=== PATIENT | male | born 1985 | race Caucasian/White ===

== ENCOUNTER 2016-07-28 18:32 | Emergency (ER) | payer OTHER ==
[~2016-07-28] VITALS: Ht 172.7 cm; Wt 93.0 kg
[2016-07-28] MEDS ORDERED: ALPR0.5T3 (18:40)
[2016-07-28] MEDS ORDERED: ESOM1CAP5 (18:40)
[2016-07-28] MEDS ORDERED: LATU20TA (18:40)
[2016-07-28] MEDS ORDERED: GI COCKTAIL 50ML BTL(HYOSCYAMINE/MAALOX/LIDOCAINE VISCOUS)(1:3:1) PO ONE (19:15)
[2016-07-28 19:34] LABS: BASO % 0.6 % (0.0-1.0); EOS # 0.1 K/mm3 (0.0-0.50); EOS % 1.4 % (0.0-3.0); LARGE UNSTAINED CELL # 0.1 K/mm3 (0.0-0.4); LARGE UNSTAINED CELL % 2.1 % (0.0-4.0); LYMPH # 2.6 K/mm3 (1.5-4.5); MEAN CORPUSCULAR HEMOGLOBIN 32.5 pg (27.0-33.0); MEAN CORPUSCULAR HGB CONC 34.9 g/dl (32.0-36.5); MEAN CORPUSCULAR VOLUME 93.3 fl (80.0-96.0); MONO # 0.4 K/mm3 (0.0-0.8); MONO % 6.2 % (0.0-5.0); NEUTROPHILS # 2.6 K/mm3 (1.8-7.7); NEUTROPHILS % 44.8 % (36.0-66.0); PLATELET COUNT, AUTOMATED 284 k/mm3 (150-450); RED CELL DISTRIBUTION WIDTH 12.6 % (11.5-14.5); WHITE BLOOD COUNT 5.8 K/mm3 (4.0-10.0)
[2016-07-28 19:52] LABS: ERYTHROCYTE SEDIMENTATION RATE 5 mm/hr (0-15)
[2016-07-28 20:03] LABS: ALBUMIN 4.1 GM/DL (3.2-5.2); ALBUMIN/GLOBULIN RATIO 1.24 (1.00-1.93); ALKALINE PHOSPHATASE 61 U/L (45-117); ALT/SGPT 41 U/L (12-78); ANION GAP 5 MEQ/L (8-16); AST/SGOT 22 U/L (15-37); BILIRUBIN,DIRECT < 0.1 MG/DL (0.0-0.2); BILIRUBIN,TOTAL 0.2 MG/DL (0.2-1.0); BLOOD UREA NITROGEN 19 MG/DL (7-18); CALCIUM LEVEL 8.5 MG/DL (8.5-10.1); CARBON DIOXIDE LEVEL 28 MEQ/L (21-32); CHLORIDE LEVEL 106 MEQ/L (98-107); CREATININE FOR GFR 1.33 MG/DL (0.70-1.30); GLOMERULAR FILTRATION RATE > 60.0 (>60); GLUCOSE, FASTING 90 MG/DL (70-105); POTASSIUM SERUM 4.3 MEQ/L (3.5-5.1); SODIUM LEVEL 139 MEQ/L (136-145); TOTAL PROTEIN 7.4 GM/DL (6.4-8.2)
[2016-07-28] MEDS ORDERED: ASPIRIN 81 MG CHEW TABLET PO ONE (20:15)
[2016-07-28] MEDS ORDERED: NORCO, ANEXSIA 5/325MG TABLET (HYDROcodone/ACETAMINOPHEN) PO ONE (20:15)
[2016-07-28] MEDS ORDERED: NITROGLYCERIN 0.4 MG SUBL TABLET SL STA (21:03)
[2016-07-28] MEDS ORDERED: IBUPROFEN 600 MG TAB PO ONE (21:30)
[2016-07-28] MEDS ORDERED: NITROGLYCERIN 0.4 MG SUBL TABLET SL PRN (21:30)
[2016-07-28] MEDS ORDERED: NS 1,000 ML IV ONE (21:45)
[2016-07-29 00:57] VITALS: BP 124/72
--- NOTE | 2016-07-29 07:24 | ECGEPIP ---
Stationary ECG Study [facility] - ED Test Date: 2016-07-28 Pat Name: ANDREA LIN Department: Room: - Gender: M Food Aide: rn : 1985 Requested By: Oralia Reese Order Number: [id number] Reading MD: Oralia Reese Measurements Intervals [place] Rate: 58 P: 2 CA: 222 QRS: 54 QRSD: 96 T: 18 QT: 369 QTc: 365 Interpretive Statements SINUS BRADYCARDIA WITH SINUS ARRHYTHMIA WITH FIRST DEGREE AV BLOCK NO PRIOR FOR COMPARISON Electronically Signed On 07-29-2016 7:24:07 EDT by Oralia Reese
--- NOTE | 2016-07-29 07:28 | ECGEPIP ---
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
--- NOTE | 2016-07-29 08:34 | REP ---
PA and lateral chest: Comparison 10/25/2015. The lung bundy are clear. The cardiac size is normal The negro, mediastinum, and bony thorax are unremarkable. Impression: Negative PA and lateral chest. Signed by Yovani Morse MD 07/29/2016 08:26 A
== END 2016-07-29 00:58 | disposition home or self-care (01) ==
LOC: M ED 19:01
DX: R07.89 Other chest pain (principal); F17.210 Nicotine dependence, cigarettes, uncomplicated

== ENCOUNTER → 2016-09-10 | Day surgery (SDC) | payer OTHER ==
[~2016-09-10] VITALS: Ht 172.7 cm; Wt 91.9 kg
[~2016-09-10] MED LIST: ALBUTEROL SULFATE 2.5 MG/0.5 ML INH NEB SOLN As Ordered ONE; ALBUTEROL SULFATE 2.5 MG/0.5 ML INH NEB SOLN INH ONE; ALPR0.5T3; DOXY-278 PO; ESOM1CAP5 PO; GLYCOPYRROLATE INJ 0.2 MG/ML 2 ML VIAL As Ordered ONE; HYDROmorphone HCL 1 MG/ML SYRINGE (J1170) IV PRN; IBUPROFEN 800 MG TAB PO PRN; KETOROLAC 30 MG/ML VIAL (J1885) As Ordered ONE; KETOROLAC 30 MG/ML VIAL (J1885) IV PRN; LATU20TA; LIDOCAINE 2% INJ 100 MG/5 ML SDV (FOR ANES.) As Ordered ONE; LIDOCAINE W/EPINEPHRINE 1% 20ML VIAL As Ordered ONE; LR 1,000 ML IV ONE; LR 1,000 ML IV SCH; MEPERIDINE INJ 25 MG/ML VIAL (J2175) As Ordered ONE; METHYLENE BLUE 0.5% (5MG/ML) 10 ML AMP (PROVAYBLUE)(Q9968 PER 1MG) As Ordered ONE; METOCLOPRAMIDE INJ 10MG/2ML VIAL (J2765) As Ordered ONE; MIDAZOLAM INJ 2 MG/2 ML VIAL (J2250) As Ordered ONE; NEOSTIGMINE 1MG/ML 5 ML SYRINGE (J2710) As Ordered ONE; ONDANSETRON 4MG/2ML VIAL (J2405) As Ordered ONE; ONDANSETRON 4MG/2ML VIAL (J2405) IV PRN; OXYMETAZOLINE NASAL SPRAY (AFRIN) As Ordered ONE; PERCOCET 5MG/325MG TAB PO PRN; PERCOCET PO; PROPOFOL 200 MG/20 ML VIAL As Ordered ONE; ROCURONIUM BROMIDE 50 MG/5 ML VIAL As Ordered ONE; TUMS500C PO; dexameTHASONE 4 MG/ML 1ML VIAL (J1100) As Ordered ONE; fentaNYL 100 MCG/2 ML INJECTION (J3010) IV PRN; fentaNYL 250 MCG/5 ML INJECTION (J3010) As Ordered ONE
[2016-09-10] MEDS: MEPERIDINE INJ 25 MG/ML VIAL (J2175) IV PRN ×2 (11:30→11:35)
[2016-09-10 13:01] VITALS: BP 121/66
--- NOTE | 2016-09-12 09:30 | RO ---
DATE OF PROCEDURE: 09/10/2016 PREPROCEDURE DIAGNOSES: Deviated septum, chronic rhinitis. POSTPROCEDURE DIAGNOSES: Deviated septum, chronic rhinitis. PROCEDURE: Septoplasty with partial reduction inferior turbinates. SURGEON: Dr. Rosendo Joshua ENGINEERING DESIGN SUPERVISOR: ANESTHESIA: General endotracheal. INDICATIONS: The patient is a 31-year-old who presents with nasal obstruction. DESCRIPTION OF PROCEDURE: Satisfactory general endotracheal anesthesia administered. Pharyngeal pack was placed and the nose was prepared for surgery by placing cotton-soaked pledgets with Afrin solution to nasal cavity bilaterally. 1% Xylocaine with 1:100,000 epinephrine was used to inject into the nasal septum and inferior turbinates. A [place] incision was made on the left side of the nose. A mucoperichondrial flap and envelope was created on the left side of the nasal septum and carried down to the junction of the bony and cartilaginous septum. This was then with an elevator, and an envelope was then created on the right side of the septum. A Leah scissors was used to make a cut high in the perpendicular plate in the midportion of the vomer, and a central segment of the bony septum was resected. Next, with the round knife on the Stewart elevator, a strip of cartilage was resected from the floor of the nose, mobilizing the quadrilateral cartilage and creating a swinging door. Then, a central segment of cartilaginous septum was resected, preserving a 1 cm dorsal and caudal strut. Double-action rongeur was used to take down deflected portions of the perpendicular plate, as well. Finally, the maxillary crest spur was taken down after elevating mucoperiosteum off both sides of it with a chisel. A segment of the resected cartilage was morselized and placed back into the septal envelope. The incision was closed using an interrupted #5-0 chromic suture. Then, a #4-0 plain suture was placed in a osvm-bde-ggszd fashion through the two leaves of mucoperichondrium to appose them. Next, the inferior turbinates were medially infractured. A #15 blade was used to make an incision on the anterior tip of the inferior turbinate. With a Stewart elevator, a mucoperiosteal tunnel was created on the medial side of the turbinate. Then, the microdebrider with a 2.9 mm blade was inserted into the tunnel, and the underlying turbinate bone was weakened and partially resected using the microdebrider. Then, the turbinate was laterally outfractured. The posteroinferior tip of the turbinate was then cauterized with suction cautery. Finally, Mortensen splints were placed into the nose and sewn to the columella with a #2-0 Prolene suture. The pharyngeal pack, which had been placed at the beginning of the procedure was removed, the throat was suctioned. The patient was then awakened, extubated, and sent to recovery in satisfactory condition. He will be discharged home on Percocet for pain and doxycycline 100 mg twice a day. He will be seen back in 3 days for splint removal.
== END | disposition home or self-care (01) ==
LOC: M SDC 07:45
PROVIDERS: ATTEND Specialist
DX: J34.2 Deviated nasal septum (principal); J31.0 Chronic rhinitis; K21.9 Gastro-esophageal reflux disease without esophagitis; F17.210 Nicotine dependence, cigarettes, uncomplicated; R07.9 Chest pain, unspecified; F41.9 Anxiety disorder, unspecified; M54.2 Cervicalgia; Z79.899 Other long term (current) drug therapy

== ENCOUNTER → 2016-10-14 | Outpatient (CLI) | payer OTHER ==
[~2016-10-14] MED LIST changes: -ALBUTEROL SULFATE 2.5 MG/0.5 ML INH NEB SOLN As Ordered ONE; -ALBUTEROL SULFATE 2.5 MG/0.5 ML INH NEB SOLN INH ONE; -GLYCOPYRROLATE INJ 0.2 MG/ML 2 ML VIAL As Ordered ONE; -HYDROmorphone HCL 1 MG/ML SYRINGE (J1170) IV PRN; -IBUPROFEN 800 MG TAB PO PRN; -KETOROLAC 30 MG/ML VIAL (J1885) As Ordered ONE; -KETOROLAC 30 MG/ML VIAL (J1885) IV PRN; -LIDOCAINE 2% INJ 100 MG/5 ML SDV (FOR ANES.) As Ordered ONE; -LIDOCAINE W/EPINEPHRINE 1% 20ML VIAL As Ordered ONE; -LR 1,000 ML IV ONE; -LR 1,000 ML IV SCH; -MEPERIDINE INJ 25 MG/ML VIAL (J2175) As Ordered ONE; -METHYLENE BLUE 0.5% (5MG/ML) 10 ML AMP (PROVAYBLUE)(Q9968 PER 1MG) As Ordered ONE; -METOCLOPRAMIDE INJ 10MG/2ML VIAL (J2765) As Ordered ONE; -MIDAZOLAM INJ 2 MG/2 ML VIAL (J2250) As Ordered ONE; -NEOSTIGMINE 1MG/ML 5 ML SYRINGE (J2710) As Ordered ONE; -ONDANSETRON 4MG/2ML VIAL (J2405) As Ordered ONE; -ONDANSETRON 4MG/2ML VIAL (J2405) IV PRN; -OXYMETAZOLINE NASAL SPRAY (AFRIN) As Ordered ONE; -PERCOCET 5MG/325MG TAB PO PRN; -PROPOFOL 200 MG/20 ML VIAL As Ordered ONE; -ROCURONIUM BROMIDE 50 MG/5 ML VIAL As Ordered ONE; -dexameTHASONE 4 MG/ML 1ML VIAL (J1100) As Ordered ONE; -fentaNYL 100 MCG/2 ML INJECTION (J3010) IV PRN; -fentaNYL 250 MCG/5 ML INJECTION (J3010) As Ordered ONE
--- NOTE | 2016-10-14 12:52 | REP ---
Clinical: Trauma. Technique: AP, lateral right forearm. Findings: The osseous structures and joint spaces are intact and normal. There is no evidence for acute fracture or dislocation. Surrounding soft tissues are unremarkable. No subcutaneous emphysema or radiodense foreign body. Impression: No acute fracture or dislocation. Signed by Amari Dukes MD 10/14/2016 12:44 P
--- NOTE | 2016-10-14 12:53 | REP ---
Clinical: Trauma . Technique: AP, lateral, bilateral oblique views of the right elbow. Findings: No acute fracture or dislocation is appreciated. Joint spaces and surrounding soft tissues appear normal. Lateral view demonstrates normal positioning to the anterior and posterior fat pads without evidence for effusion/hemarthrosis. No subcutaneous emphysema or foreign body identified. Impression: Normal right elbow radiographs. Signed by Amari Dukes MD 10/14/2016 12:44 P
--- NOTE | 2016-10-14 12:54 | REP ---
Clinical: Trauma. Technique: AP, lateral, bilateral oblique views right hand . Findings: The osseous structures and joint spaces are intact and normal. There is no evidence for acute fracture or dislocation. Mild swelling. No subcutaneous emphysema or radiodense foreign body. Impression: Mild swelling. No acute fracture or dislocation. Signed by Amari Dukes MD 10/14/2016 12:46 P
== END ==
LOC: M WUC 12:20
PROVIDERS: ATTEND Physician Assistant
DX: M79.631 Pain in right forearm (principal); M25.541 Pain in joints of right hand; M25.441 Effusion, right hand

== ENCOUNTER → 2016-11-28 | Outpatient (CLI) | payer OTHER ==
--- NOTE | 2016-11-28 18:54 | REP ---
MAXILLOFACIAL CT WITHOUT CONTRAST: HISTORY: Chronic maxillary sinusitis. A small defect is present in the right uncinate process. This may be secondary to previous surgery. Minimal mucosal thickening is present in the right maxillary sinus. The remaining sinuses are clear. The osteomeatal units are patent. The middle and inferior nasal turbinates are partially paradoxical. There is mild deviation of the nasal septum to the right. The cribriform plate, medial marie of the orbits and optic canals are intact. The carotid canals for a segment of the posterolateral marie of the sphenoid sinus. The sphenoid sinus septum inserts into the left internal carotid canal wall. IMPRESSION: Sinus mucosal thickening as described above. Signed by Jasson Kaiser MD 11/29/2016 08:24 A
== END ==
LOC: M RAD 16:10
PROVIDERS: ATTEND Specialist
DX: J32.0 Chronic maxillary sinusitis (principal)

== ENCOUNTER → 2017-05-14 | Outpatient (CLI) | payer OTHER ==
[2017-05-14 12:40] LABS: BASO # 0.1 10^3/uL (0.0-0.2); BASO % 0.6 % (0.0-1.0); EOS # 0.1 10^3/uL (0.0-0.50); EOS % 0.7 % (0.0-3.0); HEMATOCRIT 47.4 % (42.0-52.0); HEMOGLOBIN 16.3 g/dl (14.0-18.0); IMMATURE GRANULOCYTE % 0.4 % (0-0); LYMPH # 3.9 10^3/uL (1.5-4.5); LYMPH % 36.6 % (24.0-44.0); MEAN CORPUSCULAR HEMOGLOBIN 31.3 pg (27.0-33.0); MEAN CORPUSCULAR HGB CONC 34.4 g/dl (32.0-36.5); NEUTROPHILS # 5.6 10^3/uL (1.8-7.7); NEUTROPHILS % 52.7 % (36.0-66.0); PLATELET COUNT, AUTOMATED 264 10^3/uL (150-450); RED BLOOD COUNT 5.21 10^6/uL (4.30-6.10); RED CELL DISTRIBUTION WIDTH 12.3 % (11.5-14.5); WHITE BLOOD COUNT 10.7 10^3/uL (4.0-10.0)
[2017-05-14 13:32] LABS: ALBUMIN 4.4 GM/DL (3.2-5.2); ALBUMIN/GLOBULIN RATIO 1.33 (1.00-1.93); ALKALINE PHOSPHATASE 65 U/L (45-117); ALT/SGPT 41 U/L (12-78); ANION GAP 8 MEQ/L (8-16); AST/SGOT 15 U/L (7-37); BILIRUBIN,TOTAL 0.3 MG/DL (0.2-1.0); BLOOD UREA NITROGEN 17 MG/DL (7-18); CALCIUM LEVEL 10.1 MG/DL (8.5-10.1); CARBON DIOXIDE LEVEL 29 MEQ/L (21-32); CHLORIDE LEVEL 106 MEQ/L (98-107); CREATININE FOR GFR 1.16 MG/DL (0.70-1.30); GLOMERULAR FILTRATION RATE > 60.0 (>60); GLUCOSE, FASTING 75 MG/DL (70-100); SODIUM LEVEL 143 MEQ/L (136-145); TOTAL PROTEIN 7.7 GM/DL (6.4-8.2)
== END ==
LOC: M WUC 09:47
DX: R05 Cough (principal)
CPT/HCPCS: 80053

== ENCOUNTER 2017-05-15 18:15 | Emergency (ER) | payer OTHER ==
[2017-05-15 20:06] LABS: BASO # 0.1 10^3/uL (0.0-0.2); BASO % 0.8 % (0.0-1.0); EOS # 0.1 10^3/uL (0.0-0.50); EOS % 1.5 % (0.0-3.0); HEMATOCRIT 44.3 % (42.0-52.0); HEMOGLOBIN 15.7 g/dl (14.0-18.0); IMMATURE GRANULOCYTE % 0.5 % (0-3.0); LYMPH # 2.8 10^3/uL (1.5-4.5); LYMPH % 37.5 % (24.0-44.0); MEAN CORPUSCULAR HEMOGLOBIN 31.7 pg (27.0-33.0); MEAN CORPUSCULAR HGB CONC 35.4 g/dl (32.0-36.5); MEAN CORPUSCULAR VOLUME 89.3 fl (80.0-96.0); MONO # 0.5 10^3/uL (0.0-0.8); MONO % 6.2 % (0.0-5.0); NEUTROPHILS % 53.5 % (36.0-66.0); PLATELET COUNT, AUTOMATED 238 10^3/uL (150-450); RED BLOOD COUNT 4.96 10^6/uL (4.30-6.10); RED CELL DISTRIBUTION WIDTH 11.9 % (11.5-14.5); WHITE BLOOD COUNT 7.4 10^3/uL (4.0-10.0)
[2017-05-15 20:16] LABS: INR 0.85; PROTHROMBIN TIME 11.7 SECONDS (12.4-14.5)
[2017-05-15 20:17] LABS: PARTIAL THROMBOPLASTIN TIME 31.5 SECONDS (26.8-37.9)
[2017-05-15 20:19] LABS: D-DIMER QUANT 277.4 ng/ml (<500)
[2017-05-15 20:25] LABS: ERYTHROCYTE SEDIMENTATION RATE 3 mm/hr (0-15)
[2017-05-15 20:38] LABS: ALBUMIN/GLOBULIN RATIO 1.25 (1.00-1.93); ALKALINE PHOSPHATASE 66 U/L (45-117); ALT/SGPT 41 U/L (12-78); ANION GAP 7 MEQ/L (8-16); AST/SGOT 18 U/L (7-37); BILIRUBIN,DIRECT < 0.1 MG/DL (0.0-0.2); BILIRUBIN,TOTAL 0.2 MG/DL (0.2-1.0); BLOOD UREA NITROGEN 20 MG/DL (7-18); C REACTIVE PROTEIN QUANTITATIV < 0.30 MG/DL (0.00-0.30); CALCIUM LEVEL 8.8 MG/DL (8.5-10.1); CARBON DIOXIDE LEVEL 29 MEQ/L (21-32); CHLORIDE LEVEL 105 MEQ/L (98-107); CREATININE FOR GFR 1.45 MG/DL (0.70-1.30); GLUCOSE, FASTING 115 MG/DL (70-100); NT-PRO BNP 18 PG/ML (<125); POTASSIUM SERUM 3.9 MEQ/L (3.5-5.1); SODIUM LEVEL 141 MEQ/L (136-145); TOTAL PROTEIN 7.2 GM/DL (6.4-8.2)
== END 2017-05-15 21:01 | disposition home or self-care (01) ==
LOC: M ED 18:15
DX: R07.9 Chest pain, unspecified (principal); R06.02 Shortness of breath; R00.2 Palpitations; R42 Dizziness and giddiness; R05 Cough; K21.9 Gastro-esophageal reflux disease without esophagitis; R56.9 Unspecified convulsions; F41.9 Anxiety disorder, unspecified; Z82.49 Family history of ischemic heart disease and other diseases of the circulatory system; F17.210 Nicotine dependence, cigarettes, uncomplicated
CPT/HCPCS: 71046

== ENCOUNTER → 2017-06-05 | Outpatient (CLI) | payer OTHER | LOC: M WUC 11:06 | DX: R05 Cough (principal) | CPT/HCPCS: 71046 ==

== ENCOUNTER → 2017-07-19 | Outpatient (CLI) | payer OTHER ==
[2017-07-19 12:40] LABS: HEMATOCRIT 43.9 % (42.0-52.0); HEMOGLOBIN 15.2 g/dl (13.5-17.5); MEAN CORPUSCULAR HEMOGLOBIN 31.3 pg (27.0-33.0); MEAN CORPUSCULAR HGB CONC 34.6 g/dl (32.0-36.5); MEAN CORPUSCULAR VOLUME 90.5 fl (80.0-96.0); PLATELET COUNT, AUTOMATED 267 10^3/uL (150-450); RED BLOOD COUNT 4.85 10^6/uL (4.30-6.10); RED CELL DISTRIBUTION WIDTH 12.6 % (11.5-14.5); WHITE BLOOD COUNT 6.5 10^3/uL (4.0-10.0)
[2017-07-19 12:56] LABS: TOTAL 25(OH) VITAMIN D 20.9 NG/ML (30.0-100.0)
[2017-07-19 12:57] LABS: ALBUMIN 4.4 GM/DL (3.2-5.2); ALBUMIN/GLOBULIN RATIO 1.33 (1.00-1.93); ALKALINE PHOSPHATASE 63 U/L (45-117); ALT/SGPT 47 U/L (12-78); ANION GAP 7 MEQ/L (8-16); AST/SGOT 15 U/L (7-37); BILIRUBIN,TOTAL 0.3 MG/DL (0.2-1.0); BLOOD UREA NITROGEN 19 MG/DL (7-18); CALCIUM LEVEL 8.9 MG/DL (8.5-10.1); CARBON DIOXIDE LEVEL 27 MEQ/L (21-32); CHLORIDE LEVEL 108 MEQ/L (98-107); CHOLESTEROL LEVEL 217 MG/DL (<200); CHOLESTEROL RISK RATIO 5.864 (<5); CREATININE FOR GFR 1.08 MG/DL (0.70-1.30); GLOMERULAR FILTRATION RATE > 60.0 (>60); GLUCOSE, FASTING 84 MG/DL (70-100); HDL CHOLESTEROL 37 MG/DL (>40); LDL CHOLESTEROL 147.8 MG/DL (<100); NON-HDL-C 180 MG/DL; POTASSIUM SERUM 4.5 MEQ/L (3.5-5.1); SODIUM LEVEL 142 MEQ/L (136-145); TESTOSTERONE 441 NG/DL (241-827); TOTAL PROTEIN 7.7 GM/DL (6.4-8.2); TRIGLYCERIDES LEVEL 161 MG/DL (<150)
[2017-07-19 13:21] LABS: ESTIMATED AVERAGE GLUCOSE 114 MG/DL (60-110); HEMOGLOBIN A1c 5.6 %
== END ==
LOC: M WUC 08:25
DX: D64.9 Anemia, unspecified (principal); R53.83 Other fatigue; E03.9 Hypothyroidism, unspecified
CPT/HCPCS: 84403

== ENCOUNTER 2017-09-21 09:52 | Emergency (ER) | payer OTHER ==
[2017-09-21] MEDS: KETOROLAC 60 MG/2 ML VIAL (J1885) IM ×2 (10:57)
== END 2017-09-21 12:19 | disposition home or self-care (01) ==
LOC: M ED 09:52
DX: M79.652 Pain in left thigh (principal); F41.9 Anxiety disorder, unspecified; F17.210 Nicotine dependence, cigarettes, uncomplicated
CPT/HCPCS: J1885

== ENCOUNTER → 2017-11-09 | Outpatient (CLI) | payer OTHER | LOC: M SLEEP 19:40 | DX: R40.0 Somnolence (principal) | CPT/HCPCS: 95810 ==

== ENCOUNTER 2017-11-15 10:38 | Day surgery (SDC) | payer OTHER ==
[2017-11-15] MEDS ORDERED: fentaNYL 100 MCG/2 ML INJECTION (J3010) As Ordered (10:46)
[2017-11-15] MEDS ORDERED: PROPOFOL 500 MG/50 ML VIAL As Ordered (10:48)
[2017-11-15] MEDS ORDERED: LIDOCAINE 2% INJ 100 MG/5 ML SDV (FOR ANES.) As Ordered (10:52)
[2017-11-15] MEDS: NS 1,000 ML IV (10:53)
== END 2017-11-15 12:25 | disposition home or self-care (01) ==
LOC: M OPP 10:38
DX: K21.9 Gastro-esophageal reflux disease without esophagitis (principal); K29.70 Gastritis, unspecified, without bleeding; K22.8 Other specified diseases of esophagus; M54.9 Dorsalgia, unspecified; F32.9 Major depressive disorder, single episode, unspecified; F41.9 Anxiety disorder, unspecified; F17.210 Nicotine dependence, cigarettes, uncomplicated; R00.2 Palpitations; Z79.899 Other long term (current) drug therapy; Z80.0 Family history of malignant neoplasm of digestive organs; Z82.49 Family history of ischemic heart disease and other diseases of the circulatory system; Z80.41 Family history of malignant neoplasm of ovary
CPT/HCPCS: 43239

== ENCOUNTER → 2017-12-12 | Outpatient (CLI) | payer OTHER | LOC: M SLEEP 19:43 | DX: G47.33 Obstructive sleep apnea (adult) (pediatric) (principal) | CPT/HCPCS: 95811 ==

== ENCOUNTER → 2018-03-02 | Outpatient (CLI) | payer OTHER | LOC: M WUC 12:06 | DX: M89.9 Disorder of bone, unspecified (principal) | CPT/HCPCS: 71046 ==

== ENCOUNTER 2018-10-05 09:28 | Emergency (ER) | payer OTHER ==
[~2018-10-05] VITALS: Ht 172.7 cm; Wt 90.9 kg
[~2018-10-05 09:28] MED LIST changes: +AZIT-12; -DOXY-278 PO; +DOXY-350 PO; +IPRA6SP; +NAPR-837 PO; +NORC1TAB7 PO; +PANT40TA3 PO
[2018-10-05] MEDS ORDERED: IBUPROFEN 800 MG TAB PO ONE (10:15)
--- NOTE | 2018-10-05 10:23 | REP ---
Clinical: Trauma. Technique: AP, lateral, bilateral oblique views of the left ankle. Findings: Lateral swelling consist with inversion injury. No acute fracture dislocation. Joint spaces and ankle mortise are intact. Impression: Lateral swelling consist with inversion injury. No acute fracture. Electronically Signed by Amari Dukes MD 10/05/2018 10:14 A
[2018-10-05 10:54] VITALS: BP 118/59
[2018-10-05] MEDS ORDERED: IBUP80TA PO (10:57)
[2018-10-05] MEDS ORDERED: ACET-683 PO (10:57)
[2018-10-05] MEDS ORDERED: PERCOCET 5MG/325MG TAB PO ONE (11:00)
== END 2018-10-05 11:10 | disposition home or self-care (01) ==
LOC: M ED 09:28
DX: S93.402A Sprain of unspecified ligament of left ankle, initial encounter (principal); X50.9XXA Other and unspecified overexertion or strenuous movements or postures, initial encounter; Y92.89 Other specified places as the place of occurrence of the external cause; K21.9 Gastro-esophageal reflux disease without esophagitis; F41.9 Anxiety disorder, unspecified; F17.210 Nicotine dependence, cigarettes, uncomplicated

== ENCOUNTER → 2019-02-13 | Outpatient (CLI) | payer OTHER ==
[~2019-02-13] MED LIST changes: +ACET-683 PO; +IBUP80TA PO
[2019-02-17 00:06] LABS: Lyme Disease IgG/IgM Antibodie <0.91 ISR (0.00-0.90); Lyme Disease IgM Ab Quantitati <0.80 index (0.00-0.79)
== END ==
LOC: M WUC 18:13
PROVIDERS: ATTEND Physician Assistant
DX: S40.262A Insect bite (nonvenomous) of left shoulder, initial encounter (principal); W57.XXXA Bitten or stung by nonvenomous insect and other nonvenomous arthropods, initial encounter; Y92.9 Unspecified place or not applicable

== ENCOUNTER 2019-04-27 23:55 | Emergency (ER) | payer OTHER ==
[~2019-04-27] VITALS: Ht 172.7 cm; Wt 98.0 kg
[2019-04-27 23:55] VITALS: BP 184/108
[2019-04-28] MEDS ORDERED: BUPIVACAINE LIPOSOME/PF 1.3% 20ML VIAL (13.3MG/ML)(EXPAREL)(C9290 PER1MG) INFIL ONE (01:15)
[2019-04-28] MEDS ORDERED: traMADol 50 MG TAB (BULK 4 TAB ED) PO ONE (02:30)
== END 2019-04-28 02:36 | disposition home or self-care (01) ==
LOC: M ED 23:55
DX: K08.89 Other specified disorders of teeth and supporting structures (principal); F17.200 Nicotine dependence, unspecified, uncomplicated; Z98.890 Other specified postprocedural states
CPT/HCPCS: 64400; 99282; C9290

== ENCOUNTER 2019-10-18 17:45 | Emergency (ER) | payer OTHER ==
[~2019-10-18] VITALS: Ht 172.7 cm; Wt 96.5 kg
[~2019-10-18 17:45] MED LIST changes: -CARA1TAB6 PO; -OMEP40CA97 PO; -PANT40TA29 PO; +PANT40TA3 PO; -PEPC1TAB5 PO; -PRED20TA PO
[2019-10-18 18:42] LABS: BASO % 0.6 % (0.0-1.0); EOS # 0.1 10^3/uL (0.0-0.5); HEMOGLOBIN 15.7 g/dl (13.5-17.5); LYMPH # 2.7 10^3/uL (1.5-5.0); LYMPH % 41.4 % (24.0-44.0); MEAN CORPUSCULAR HEMOGLOBIN 31.4 pg (27.0-33.0); MEAN CORPUSCULAR HGB CONC 34.1 g/dl (32.0-36.5); MONO # 0.4 10^3/uL (0.0-0.8); MONO % 5.6 % (0.0-5.0); NEUTROPHILS # 3.3 10^3/uL (1.5-8.5); NEUTROPHILS % 50.2 % (36.0-66.0); PLATELET COUNT, AUTOMATED 227 10^3/uL (150-450); WHITE BLOOD COUNT 6.6 10^3/uL (4.0-10.0)
[2019-10-18 19:14] LABS: ALBUMIN 4.1 GM/DL (3.2-5.2); ALT/SGPT 35 U/L (12-78); BILIRUBIN,DIRECT < 0.1 MG/DL (0.0-0.2); BILIRUBIN,TOTAL 0.1 MG/DL (0.2-1.0); LIPASE 88 U/L (73-393); TOTAL PROTEIN 7.4 GM/DL (6.4-8.2)
[2019-10-18] MEDS ORDERED: ISOVUE-370 76% 100ML VIAL As Ordered ONE (20:10)
--- NOTE | 2019-10-18 20:43 | REPVR ---
PROCEDURE INFORMATION: Exam: CT Abdomen And Pelvis With Contrast Exam date and time: 10/18/2019 8:18 PM Age: 34 years old Clinical indication: Abdominal pain; Flank; Left; Additional info: L flank pain TECHNIQUE: Imaging protocol: Computed tomography of the abdomen and pelvis with intravenous contrast. Radiation optimization: All CT scans at this facility use at least one of these dose optimization techniques: automated exposure control; mA and/or kV adjustment per patient size (includes targeted exams where dose is matched to clinical indication); or iterative reconstruction. Contrast material: ISOVUE 370; Contrast volume: 100 ml; Contrast route: INTRAVENOUS (IV); COMPARISON: CT ABD PELVIS WITH CONTRAST 10/25/2015 8:30 AM FINDINGS: Liver: Normal. No mass. Gallbladder and bile ducts: The gallbladder is incompletely distended. This is most likely related to incomplete fasting. Clinical correlation to exclude gallbladder pathology suggested. Pancreas: Normal. No ductal dilation. Spleen: Normal. No splenomegaly. Adrenals: Normal. No mass. Kidneys and ureters: Normal. No hydronephrosis. Stomach and bowel: Unremarkable. No obstruction. No mucosal thickening. Appendix: No evidence of appendicitis. Intraperitoneal space: Unremarkable. No free air. No significant fluid collection. Vasculature: Unremarkable. No abdominal aortic aneurysm. Lymph nodes: Unremarkable. No enlarged lymph nodes. Bladder: Unremarkable as visualized. Reproductive: The prostate gland demonstrates mild hyperplasia. Bones/joints: Moderate central spinal stenosis at L4-L5 secondary to a posterior disc protrusion. Soft tissues: Unremarkable. IMPRESSION: 1. The gallbladder is incompletely distended. This is most likely related to incomplete fasting. Clinical correlation to exclude gallbladder pathology suggested. 2. Mild prostatic hyperplasia. Electronically signed by: Rohan Dotson On 10/18/2019 20:43:21 PM
[2019-10-18 21:16] VITALS: BP 149/88
== END 2019-10-18 21:18 | disposition home or self-care (01) ==
LOC: M ED 17:45
DX: R10.9 Unspecified abdominal pain (principal)
CPT/HCPCS: 36415; 74177; 80047; 80076; 81001; 83690; 85025; 99284; Q9967

== ENCOUNTER → 2019-10-18 | Outpatient (CLI) | payer OTHER ==
[~2019-10-18] MED LIST changes: +CARA1TAB6 PO; +OMEP40CA97 PO; +PANT40TA29 PO; -PANT40TA3 PO; +PEPC1TAB5 PO; +PRED20TA PO
[2019-10-18 13:24] LABS: BACTERIA, URINE AUTO NEGATIVE (NEGATIVE); RBC, URINE AUTO 0 /HPF (0-3); SQUAMOUS EPITHELIAL CELL UR AU 0 /HPF (0-6); WBC, URINE AUTO 0 /HPF (0-3)
[2019-10-18 13:30] LABS: BASO % 0.6 % (0.0-1.0); EOS # 0.1 10^3/uL (0.0-0.5); EOS % 1.5 % (0.0-3.0); HEMATOCRIT 43.7 % (42.0-52.0); HEMOGLOBIN 15.1 g/dl (13.5-17.5); LYMPH # 2.1 10^3/uL (1.5-5.0); LYMPH % 30.7 % (24.0-44.0); MEAN CORPUSCULAR HEMOGLOBIN 31.7 pg (27.0-33.0); MEAN CORPUSCULAR HGB CONC 34.6 g/dl (32.0-36.5); MEAN CORPUSCULAR VOLUME 91.8 fl (80.0-96.0); MONO # 0.4 10^3/uL (0.0-0.8); MONO % 5.7 % (0.0-5.0); NEUTROPHILS # 4.2 10^3/uL (1.5-8.5); NEUTROPHILS % 61.2 % (36.0-66.0); PLATELET COUNT, AUTOMATED 228 10^3/uL (150-450); RED BLOOD COUNT 4.76 10^6/uL (4.30-6.10); WHITE BLOOD COUNT 6.9 10^3/uL (4.0-10.0)
[2019-10-18 13:39] LABS: ALBUMIN 3.9 GM/DL (3.2-5.2); ALT/SGPT 33 U/L (12-78); AMYLASE 33 U/L (25-115); BILIRUBIN,TOTAL 0.4 MG/DL (0.2-1.0); BLOOD UREA NITROGEN 18 MG/DL (7-18); CALCIUM LEVEL 8.8 MG/DL (8.5-10.1); CARBON DIOXIDE LEVEL 25 MEQ/L (21-32); CHLORIDE LEVEL 108 MEQ/L (98-107); CREATININE FOR GFR 1.08 MG/DL (0.70-1.30); GLOMERULAR FILTRATION RATE > 60.0 (>60); GLUCOSE, FASTING 113 MG/DL (70-100); LIPASE 58 U/L (73-393); SODIUM LEVEL 139 MEQ/L (136-145); TOTAL PROTEIN 7.1 GM/DL (6.4-8.2)
--- NOTE | 2019-10-19 03:08 | REP ---
SUPINE ABDOMEN: 10/18/2019. COMPARISON: AP view from lumbar spine 04/23/2016. CLINICAL HISTORY: Dorsalgia. FINDINGS: Pedicles, spinous and transverse processes were all unchanged. There is no compression deformity. Pelvis and lower thoracic region unremarkable. The gas pattern is nonspecific. There is some mild to moderate retained stool in the right and proximal transverse colon. No dilated small bowel loops. No abnormal calcifications over the renal fossae or expected course of the ureters, nor in the pelvis. IMPRESSION: 1. Nonspecific gas pattern; no obstruction, mass, or free air. 2. No abnormal calcifications over the renal fossae, expected course of the ureters, or bladder. 3. Some minor degenerative changes lower lumbar spine. Electronically Signed by Derek Carbone MD 10/19/2019 08:48 A
== END ==
LOC: M WUC 11:16
PROVIDERS: ATTEND Nurse Practitioner Family
DX: M54.9 Dorsalgia, unspecified (principal)

== ENCOUNTER → 2019-11-11 | Emergency (ER) | payer OTHER ==
[~2019-11-11] MED LIST changes: +CARA1TAB6 PO; +LIDOCAINE 5% (LIDODERM) PATCH As Ordered ONE; +LIDOCAINE 5% (LIDODERM) PATCH ONE; +MORPHINE 10 MG/ML 1ML VIAL (J2270) As Ordered ONE; +MORPHINE 10 MG/ML 1ML VIAL (J2270) ONE; +OMEP40CA97 PO; +PANT40TA29 PO; -PANT40TA3 PO; +PEPC1TAB5 PO; +PRED20TA PO; +diazePAM 5 MG TAB As Ordered ONE; +diazePAM 5 MG TAB ONE; +methylPREDNISolone 125MG 2ML VIAL As Ordered ONE; +methylPREDNISolone 125MG 2ML VIAL ONE
== END | disposition home or self-care (01) ==
LOC: M ED 18:22
DX: F17.200 Nicotine dependence, unspecified, uncomplicated (principal); M51.36 Other intervertebral disc degeneration, lumbar region; Z79.899 Other long term (current) drug therapy
CPT/HCPCS: 72146; 72148; 96372; 99283; J2270; J2930

== ENCOUNTER 2020-02-17 16:21 | Emergency (ER) | payer OTHER ==
[~2020-02-17] VITALS: Ht 172.7 cm; Wt 100.0 kg
[~2020-02-17 16:21] MED LIST changes: -CARA1TAB6 PO; -LIDOCAINE 5% (LIDODERM) PATCH As Ordered ONE; -LIDOCAINE 5% (LIDODERM) PATCH ONE; -MORPHINE 10 MG/ML 1ML VIAL (J2270) As Ordered ONE; -MORPHINE 10 MG/ML 1ML VIAL (J2270) ONE; -OMEP40CA97 PO; -PEPC1TAB5 PO; -PRED20TA PO; -diazePAM 5 MG TAB As Ordered ONE; -diazePAM 5 MG TAB ONE; -methylPREDNISolone 125MG 2ML VIAL As Ordered ONE; -methylPREDNISolone 125MG 2ML VIAL ONE
[2020-02-17] MEDS ORDERED: IBUP80TA PO (16:32)
[2020-02-17] MEDS ORDERED: COMBIVENT RESPIMAT 100-20MCG INHALER 4GM INH ONE (17:00)
[2020-02-17] MEDS ORDERED: GI COCKTAIL 50ML BTL(HYOSCYAMINE/MAALOX/LIDOCAINE VISCOUS)(1:3:1) PO ONE (17:00)
[2020-02-17] MEDS ORDERED: dexameTHASONE 20MG/5ML VIAL (J1100 PER 1MG) IV ONE (17:00)
[2020-02-17 17:46] LABS: BASO % 0.6 % (0.0-1.0); EOS # 0.1 10^3/uL (0.0-0.5); EOS % 1.1 % (0.0-3.0); HEMATOCRIT 44.3 % (42.0-52.0); LYMPH # 1.9 10^3/uL (1.5-5.0); LYMPH % 36.1 % (24.0-44.0); MEAN CORPUSCULAR HEMOGLOBIN 31.6 pg (27.0-33.0); MEAN CORPUSCULAR HGB CONC 33.9 g/dl (32.0-36.5); MEAN CORPUSCULAR VOLUME 93.3 fl (80.0-96.0); MONO # 0.4 10^3/uL (0.0-0.8); MONO % 6.5 % (0.0-5.0); NEUTROPHILS % 55.5 % (36.0-66.0); PLATELET COUNT, AUTOMATED 247 10^3/uL (150-450); RED BLOOD COUNT 4.75 10^6/uL (4.30-6.10); WHITE BLOOD COUNT 5.4 10^3/uL (4.0-10.0)
[2020-02-17 17:57] LABS: INR 0.94; PROTHROMBIN TIME 12.8 SECONDS (12.5-14.3)
[2020-02-17 18:02] LABS: D-DIMER QUANT < 270 ng/ml (<500)
[2020-02-17 18:13] LABS: ERYTHROCYTE SEDIMENTATION RATE 7 mm/hr (0-15)
[2020-02-17 18:24] LABS: ALBUMIN 3.9 GM/DL (3.2-5.2); ALT/SGPT 51 U/L (12-78); BILIRUBIN,DIRECT < 0.1 MG/DL (0.0-0.2); BILIRUBIN,TOTAL 0.2 MG/DL (0.2-1.0); BLOOD UREA NITROGEN 17 MG/DL (7-18); CALCIUM LEVEL 9.5 MG/DL (8.5-10.1); CARBON DIOXIDE LEVEL 29 MEQ/L (21-32); CHLORIDE LEVEL 106 MEQ/L (98-107); CK-MB VALUE MASS 1.7 NG/ML (<3.6); CPK CREATINE PHOSPHOKINASE 243 U/L (39-308); CREATININE FOR GFR 1.24 MG/DL (0.70-1.30); GLOMERULAR FILTRATION RATE > 60.0 (>60); GLUCOSE, FASTING 96 MG/DL (70-100); NT-PRO BNP 20 PG/ML (<125); POTASSIUM SERUM 4.1 MEQ/L (3.5-5.1); SODIUM LEVEL 143 MEQ/L (136-145); TOTAL PROTEIN 7.2 GM/DL (6.4-8.2); TROPONIN I < 0.02 NG/ML (< 0.10)
[2020-02-17] MEDS ORDERED: SUCRALFATE SUSP 1GM/10ML UD PO ONE (19:15)
[2020-02-17] MEDS ORDERED: ISOVUE-370 76% 100ML VIAL As Ordered ONE (19:25)
--- NOTE | 2020-02-17 19:55 | REPVR ---
PROCEDURE INFORMATION: Exam: CT Angiography Chest With Contrast Exam date and time: 02/17/2020 7:33 PM Age: 34 years old Clinical indication: Chest pain TECHNIQUE: Imaging protocol: Computed tomographic angiography of the chest with intravenous contrast. 3D rendering (Not supervised by radiologist): MIP and/or 3D reconstructed images were created by the technologist. Radiation optimization: All CT scans at this facility use at least one of these dose optimization techniques: automated exposure control; mA and/or kV adjustment per patient size (includes targeted exams where dose is matched to clinical indication); or iterative reconstruction. Contrast material: ISOVUE 370; Contrast volume: 75 ml; Contrast route: INTRAVENOUS (IV); COMPARISON: CR PORTABLE CHEST X-RAY 02/17/2020 6:46 PM FINDINGS: Pulmonary arteries: No focal pulmonary artery filling defect to suggest acute pulmonary embolus. Aorta: No thoracic aortic aneurysm or dissection. Lungs: Pulmonary vascular/interstitial pattern does not suggest active pulmonary edema. No suspicious lung mass or air space process. No central endobronchial lesion. Pleural space: No pleural effusion or pneumothorax. Heart: No overt cardiac enlargement or abnormal volume of pericardial fluid. Mediastinal space: Residual thymic tissue is present in the anterior mediastinum. Lymph nodes: . No enlarged lymph nodes. Bones/joints: Bony structures show no acute fracture or destructive process. Soft tissues: No asymmetric abnormality of the extrathoracic soft tissues. Other findings: Limited visualization of upper abdomen shows no concerning finding. IMPRESSION: 1. No evidence of acute pulmonary embolus. 2. No other acute or concerning focal intrathoracic abnormality. Electronically signed by: Gonzales Cueto On 02/17/2020 19:54:31 PM
--- NOTE | 2020-02-17 20:08 | REPVR ---
PROCEDURE INFORMATION: Exam: XR Chest, 1 View Exam date and time: 02/17/2020 4:57 PM Age: 34 years old Clinical indication: Other: Chest pain TECHNIQUE: Imaging protocol: XR of the chest Views: 1 view. COMPARISON: CR RIBS UNILAT WITHOUT PA CHEST 03/02/2018 12:17 PM FINDINGS: Lungs: Degree of lung inflation is normal. No evidence of pulmonary edema. No focal consolidation or parenchymal lung mass. Pleural space: No pleural effusion or pneumothorax. Heart/Mediastinum: Cardiac silhouette appears normal. No adenopathy or hilar mass. Bones/joints: Osseous structures show no concerning abnormality. IMPRESSION: No acute or focal cardiopulmonary process. Electronically signed by: Gonzales Cueto On 02/17/2020 20:07:16 PM
[2020-02-17 22:05] LABS: CK-MB VALUE MASS 1.7 NG/ML (<3.6); CPK CREATINE PHOSPHOKINASE 222 U/L (39-308); MB/CK RELATIVE INDEX 0.77 (< OR =4); TROPONIN I < 0.02 NG/ML (< 0.10)
[2020-02-17] MEDS ORDERED: PEPC1TAB5 PO (22:23)
[2020-02-17] MEDS ORDERED: PRED20TA PO (22:23)
[2020-02-17] MEDS ORDERED: OMEP40CA97 PO (22:23)
[2020-02-17] MEDS ORDERED: CARA1TAB6 PO (22:23)
[2020-02-17 22:30] VITALS: BP 187/99
--- NOTE | 2020-02-18 18:55 | ECGEPIP ---
[facility] - ED Test Date: 2020-02-17 Pat Name: ANDREA LIN Department: Room: - Gender: Male Performance Solutions Specialist: : 1985 Requested By: KAMINI Moran Order Number: [id number] Reading MD: Oralia Reese Measurements Intervals [place] Rate: 67 P: 23 [place]: 183 QRS: 33 QRSD: 105 T: 17 QT: 344 QTc: 364 Interpretive Statements SINUS RHYTHM SIMILAR 02/17/20 Electronically Signed on 02-18-2020 18:55:36 EST by Oralia Reese
--- NOTE | 2020-02-18 18:55 | ECGEPIP ---
[facility] - ED Test Date: 2020-02-17 Pat Name: ANDREA LIN Department: Room: - Gender: Male Paper Sheeter: : 1985 Requested By: KAMINI Moran Order Number: [id number] Reading MD: Oralia Reese Measurements Intervals [place] Rate: 62 P: 67 [place]: 184 QRS: 23 QRSD: 108 T: 45 QT: 360 QTc: 367 Interpretive Statements SINUS RHYTHM DECREASED RATE 05/15/17 Electronically Signed on 02-18-2020 18:54:43 EST by Oralia Reese
--- NOTE | 2020-02-18 18:56 | ECGEPIP ---
[facility] - ED Test Date: 2020-02-17 Pat Name: ANDREA LIN Department: Room: - Gender: Male Retoucher Photoengraving: JOSELINE : 1985 Requested By: KAMINI Moran Order Number: [id number] Reading MD: Oralia Reese Measurements Intervals [place] Rate: 67 P: 0 [place]: 183 QRS: 47 QRSD: 103 T: 22 QT: 363 QTc: 383 Interpretive Statements SINUS RHYTHM SIMILAR 02/17/20 Electronically Signed on 02-18-2020 18:56:26 EST by Oralia Reese
== END 2020-02-17 22:35 | disposition home or self-care (01) ==
LOC: M ED 16:21
DX: R07.89 Other chest pain (principal); F17.200 Nicotine dependence, unspecified, uncomplicated; Z82.49 Family history of ischemic heart disease and other diseases of the circulatory system
CPT/HCPCS: 71045; 71275; 80048; 80076; 82550; 82553; 83880; 84443; 85025; 85379; 85610; 85652; 85730; 86140; 87486; 87581; 87633; 87798; 93005; 93041; 94640; 94760; 96374; 99285; J1100; Q9967

== ENCOUNTER 2020-03-02 18:16 | Emergency (ER) | payer OTHER ==
[~2020-03-02] VITALS: Ht 172.7 cm; Wt 99.5 kg
[~2020-03-02 18:16] MED LIST changes: +CARA1TAB6 PO; +OMEP40CA97 PO; +PEPC1TAB5 PO; +PRED20TA PO
[2020-03-02 18:17] VITALS: BP 141/83
[2020-03-02] MEDS ORDERED: NS 1,000 ML IV ONE ×2 (20:15)
[2020-03-02] MEDS ORDERED: KETOROLAC 30 MG/ML 1ML VIAL IV ONE (20:15)
[2020-03-02] MEDS ORDERED: ONDANSETRON 4MG/2ML VIAL IV ONE (20:15)
[2020-03-02] MEDS ORDERED: FAMOTIDINE INJ 20MG/2ML VIAL (S0028 PER 1) IVP ONE (20:15)
== END 2020-03-02 20:39 | disposition left against medical advice (07) ==
LOC: M ED 18:16
DX: B34.9 Viral infection, unspecified (principal); F17.200 Nicotine dependence, unspecified, uncomplicated

== ENCOUNTER 2020-09-16 08:32 | Emergency (ER) | payer OTHER ==
[~2020-09-16] VITALS: Ht 172.7 cm; Wt 97.8 kg
[2020-09-16] MEDS ORDERED: dexameTHASONE 20MG/5ML VIAL (J1100 PER 1MG) IV ONE (08:50)
[2020-09-16] MEDS ORDERED: GI COCKTAIL 50ML BTL(HYOSCYAMINE/MAALOX/LIDOCAINE VISCOUS)(1:3:1) PO ONE (08:50)
[2020-09-16] MEDS ORDERED: COMBIVENT RESPIMAT 100-20MCG INHALER 4GM INH ONE (08:50)
[2020-09-16 09:26] LABS: BASO % 0.7 % (0.0-1.0); EOS # 0.2 10^3/uL (0.0-0.5); EOS % 3.3 % (0.0-3.0); HEMATOCRIT 43.2 % (42.0-52.0); HEMOGLOBIN 14.7 g/dl (13.5-17.5); LYMPH % 34.8 % (24.0-44.0); MEAN CORPUSCULAR HEMOGLOBIN 31.1 pg (27.0-33.0); MEAN CORPUSCULAR VOLUME 91.5 fl (80.0-96.0); MONO # 0.6 10^3/uL (0.0-0.8); MONO % 9.7 % (2.0-8.0); NEUTROPHILS % 51.2 % (36.0-66.0); PLATELET COUNT, AUTOMATED 232 10^3/uL (150-450); RED BLOOD COUNT 4.72 10^6/uL (4.30-6.10); WHITE BLOOD COUNT 5.8 10^3/uL (4.0-10.0)
[2020-09-16 09:55] LABS: ERYTHROCYTE SEDIMENTATION RATE 15 mm/hr (0-15)
[2020-09-16 10:22] LABS: RSV AMPLIFICATION NEGATIVE (NEGATIVE)
[2020-09-16 10:46] LABS: ALT/SGPT 43 IU/L (0-32); BLOOD UREA NITROGEN 16 MG/DL (7-18); CALCIUM LEVEL 8.8 MG/DL (8.5-10.1); CARBON DIOXIDE LEVEL 27 mmol/L (20-29); CHLORIDE LEVEL 109 MEQ/L (98-107); CPK CREATINE PHOSPHOKINASE 284 U/L (39-308); GLOMERULAR FILTRATION RATE > 60.0 (>60); GLUCOSE, FASTING 96 MG/DL (70-100); POTASSIUM SERUM 4.5 MEQ/L (3.5-5.1); SODIUM LEVEL 140 MEQ/L (136-145)
[2020-09-16 10:47] LABS: ALBUMIN 3.7 GM/DL (3.2-5.2); BILIRUBIN,DIRECT < 0.1 MG/DL (0.0-0.2); BILIRUBIN,TOTAL 0.2 MG/DL (0.2-1.0); CK-MB VALUE MASS 1.3 NG/ML (<3.6); MB/CK RELATIVE INDEX 0.45 (< OR =4); TOTAL PROTEIN 6.9 GM/DL (6.4-8.2)
[2020-09-16 10:48] LABS: LIPASE 99 U/L (73-393); TROPONIN I < 0.02 NG/ML (< 0.10)
--- NOTE | 2020-09-16 10:51 | REP ---
INDICATION: CHEST PAIN. COMPARISON: 02/17/2020. TECHNIQUE: Single portable AP view of the chest was performed. FINDINGS: There is no acute infiltrate or pulmonary edema. Lungs are clear. The heart is not significantly enlarged. The mediastinal silhouette is unremarkable. The visualized osseous structures are intact. IMPRESSION: No acute pulmonary disease. <Electronically signed by Yovani Rowland > 09/16/20 1048
[2020-09-16 13:21] LABS: CK-MB VALUE MASS 1.3 NG/ML (<3.6); CPK CREATINE PHOSPHOKINASE 252 U/L (39-308); MB/CK RELATIVE INDEX 0.51 (< OR =4); TROPONIN I < 0.02 NG/ML (< 0.10)
[2020-09-16] MEDS ORDERED: COMBAER6 INH (14:28)
[2020-09-16] MEDS ORDERED: PROV108A INH (14:28)
[2020-09-16] MEDS ORDERED: PRED20TA PO (14:28)
[2020-09-16 15:11] VITALS: BP 136/68
--- NOTE | 2020-09-16 19:52 | ECGEPIP ---
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
--- NOTE | 2020-09-16 19:54 | ECGEPIP ---
[facility] - ED Test Date: 2020-09-16 Pat Name: ANDREA LIN Department: Room: - Gender: Male Day Porter: MICHAEL : 1985 Requested By: FARZAD Moran Order Number: [id number] Reading MD: Farzad Day Measurements Intervals [place] Rate: 60 P: 22 GA: 182 QRS: 25 QRSD: 82 T: 27 QT: 380 QTc: 380 Interpretive Statements Normal sinus rhythm Similar to tracing done 847 on same date Electronically Signed on 09-16-2020 19:54:21 EDT by Farzad Day
== END 2020-09-16 15:11 | disposition home or self-care (01) ==
LOC: EDBD 08:32 → M ED 08:32
DX: J45.909 Unspecified asthma, uncomplicated (principal); R07.89 Other chest pain; M54.5 Low back pain; F17.200 Nicotine dependence, unspecified, uncomplicated
CPT/HCPCS: 71045; 80048; 80076; 82550; 82553; 83690; 84443; 85025; 85652; 86140; 87631; 93005; 93041; 94640; 94664; 94760; 96374; 99285; J1100

== ENCOUNTER → 2020-10-06 | Outpatient (CLI) | payer OTHER ==
[~2020-10-06] MED LIST changes: +COMBAER6 INH; +OMEP40CA4 PO; -OMEP40CA97 PO; +PROV108A INH
--- NOTE | 2020-10-06 13:32 | PFTRPT ---
Height: 68.00 Inches Weight: 215.00 Lbs BSA: 2.11 Diagnosis: R06.00 DATE: 10/06/2020 ORDERED BY: DANNY Godoy Pre and post bronchodilator studies have excellent technical quality. Forced vital capacity is normal. FEV1 is in proportion. Obstructive index is therefore normal. Expiratory limit of the flow-volume loop is normal. No significant bronchodilator response is identified. Total lung capacity is normal. Residual volume is in proportion. Diffusing capacity is normal. Hemoglobin is acceptable at 15.5. Airway resistance and conductance are normal. IMPRESSION: Normal study. MTDD
== END ==
LOC: M CARPUL 12:49
PROVIDERS: ATTEND Physician Assistant
DX: R06.00 Dyspnea, unspecified (principal)

== ENCOUNTER 2020-11-22 10:57 | Emergency (ER) | payer OTHER ==
[~2020-11-22] VITALS: Ht 172.7 cm; Wt 95.5 kg
[2020-11-22] MEDS ORDERED: PROPARACAINE 0.5% OPHTH SOL 15ML OS ONE (12:50)
[2020-11-22] MEDS ORDERED: FLUORESCEIN OPHTH 1 MG STRIP OS ONE (12:50)
[2020-11-22] MEDS ORDERED: ERYTHROMYCIN OPHTH OINT OS ONE (13:20)
[2020-11-22] MEDS ORDERED: ERYT5OIN25 OS (13:57)
[2020-11-22 14:06] VITALS: BP 141/81
== END 2020-11-22 14:12 | disposition home or self-care (01) ==
LOC: M ED 10:57
DX: S05.02XA Injury of conjunctiva and corneal abrasion without foreign body, left eye, initial encounter (principal); W20.8XXA Other cause of strike by thrown, projected or falling object, initial encounter; Y92.9 Unspecified place or not applicable; Y93.9 Activity, unspecified; Y99.9 Unspecified external cause status; F17.200 Nicotine dependence, unspecified, uncomplicated

== ENCOUNTER → 2021-03-30 | Outpatient (CLI) | payer OTHER ==
[~2021-03-30] MED LIST changes: +ERYT5OIN25 OS
== END ==
LOC: M WUC 11:44
PROVIDERS: ATTEND Physician Assistant
DX: S29.012A Strain of muscle and tendon of back wall of thorax, initial encounter (principal); X58.XXXA Exposure to other specified factors, initial encounter; Y92.9 Unspecified place or not applicable; Y93.9 Activity, unspecified; Y99.9 Unspecified external cause status

== ENCOUNTER → 2021-09-21 | Outpatient (CLI) | payer OTHER | LOC: M SLEEP HO 14:17 | PROVIDERS: ATTEND Physician Assistant | DX: R53.83 Other fatigue (principal) ==

== ENCOUNTER 2021-12-15 21:03 | Emergency (ER) | payer OTHER ==
[~2021-12-15] VITALS: Ht 172.7 cm; Wt 100.0 kg
[~2021-12-15 21:03] MED LIST changes: +ALBU6.7H6 INH; -PROV108A INH
[2021-12-15 21:04] VITALS: BP 132/102
== END 2021-12-16 00:34 | disposition left against medical advice (07) ==
LOC: M ED 21:03
DX: Z53.29 Procedure and treatment not carried out because of patient's decision for other reasons (principal)

== ENCOUNTER → 2022-06-20 | Outpatient (CLI) | payer OTHER ==
[~2022-06-20] MED LIST changes: -DOXY-350 PO; +DOXY-444 PO
[2022-06-20 12:36] LABS: HEMATOCRIT 45.4 % (42.0-52.0); HEMOGLOBIN 15.5 g/dl (13.5-17.5); MEAN CORPUSCULAR HEMOGLOBIN 31.9 pg (27.0-33.0); MEAN CORPUSCULAR HGB CONC 34.1 g/dl (32.0-36.5); MEAN CORPUSCULAR VOLUME 93.4 fl (80.0-96.0); PLATELET COUNT, AUTOMATED 251 10^3/uL (150-450); RED BLOOD COUNT 4.86 10^6/uL (4.30-6.10); WHITE BLOOD COUNT 6.5 10^3/uL (4.0-10.0)
[2022-06-20 13:15] LABS: ALBUMIN 4.1 G/DL (3.2-5.2); ALKALINE PHOSPHATASE 74 U/L (46-116); ALT/SGPT 53 U/L (7.0-40); AST/SGOT 26 U/L (<34); BILIRUBIN,TOTAL 0.4 MG/DL (0.3-1.2); BLOOD UREA NITROGEN 18 MG/DL (9-23); CALCIUM LEVEL 9.3 MG/DL (8.5-10.1); CARBON DIOXIDE LEVEL 28 MMOL/L (20-31); CHLORIDE LEVEL 105 MMOL/L (98-107); CREATININE FOR GFR 1.02 MG/DL (0.70-1.30); GLOMERULAR FILTRATION RATE > 60.0 (>60); GLUCOSE, FASTING 100 MG/DL (60-100); POTASSIUM SERUM 4.4 MMOL/L (3.5-5.1); SODIUM LEVEL 139 MMOL/L (136-145)
== END ==
LOC: M WUC 10:30
PROVIDERS: ATTEND Student in an Organized Health Care Education/Training Program
DX: M54.50 Low back pain, unspecified (principal); M47.816 Spondylosis without myelopathy or radiculopathy, lumbar region